=== PATIENT | male | born 2000 | race Hispanic/Latino ===

== ENCOUNTER 2018-05-04 13:02 | Emergency (ER) | payer SELFPAY ==
[2018-05-04 13:13] VITALS: BP 105/53
[2018-05-04] MEDS ORDERED: XYLOCAINE 1% MPF 5 mL INFILTRATI ONE (14:18)
[2018-05-04] MEDS ORDERED: BOOSTRIX IM ONE (14:18)
--- NOTE | 2018-05-04 14:20 | Emergency Department Report ---
ED Laceration HPI - HPI Chief Complaint: Wound/Laceration Stated Complaint: RT WRIST CUT Time Seen by Provider: 05/04/18 14:01 Occurred When: Today Location: Upper Extremity (right wrist) Severity: moderate Tetanus Status: Not up to Date Laceration Symptoms: Yes Pain, No Foreign Body Sensation, No Numbness, No Weakness Other History: This is a 17-year-old male that presents with laceration to right lateral wrist. Patient reports accident occurred one hour ago while he was at work. He was putting up ceiling tile when a metal piece scraped the side of his wrist. He cleaned the area with soap and water and wrapped with paper towel and came directly to the emergency room. Patient states there is active bleeding pain. He denies sensation of foreign body, numbness or tingling, fever, swelling. ED Review of Systems ROS: Stated complaint: RT WRIST CUT Other details as noted in HPI Constitutional: denies: chills, fever Respiratory: denies: cough, shortness of breath, wheezing Cardiovascular: denies: chest pain, palpitations Gastrointestinal: denies: abdominal pain, nausea, diarrhea Skin: lesions (laceration to right wrist). denies: rash Neurological: denies: headache, weakness, paresthesias Psychiatric: denies: anxiety, depression ED Past Medical Hx - Past Medical History Previous Medical History?: No - Surgical History Past Surgical History?: Yes Additional Surgical History: right hand surgery - Social History Smoking Status: Current Every Day Smoker Substance Use Type: Alcohol, Marijuana - Medications Home Medications: Home Medications Medication Instructions Recorded Confirmed Last Taken Type Clindamycin [Clindamycin CAP] 300 mg PO Q8H #21 cap 05/04/18 Unknown Rx Laceration Physical Exam - Exam General: Vital signs noted. No distress. Alert and acting appropriately. Wound Length (cm): 3 Laceration Location: Upper Extremity (right wrist) Full Body Front + Back: 1 - 3 cm laceration into muscle right lateral ribs, mild swelling, no vessel or tendon visualized, no surrounding cellulitis. Laceration Exam: Yes Normal Distal CMS, No Foreign Body, No Exposed Tendon, Vessel, or Nerve, No Tendon Injury ED Course Vital Signs 05/04/18 13:10 Temperature 97.6 F Pulse Rate 50 L Respiratory 18 Rate Blood Pressure 105/53 O2 Sat by Pulse 100 Oximetry - Laceration /Wound Repair Right Lateral Wrist Wound Location: upper extremity (right wrist) Wound Length (cm): 3 Wound's Depth, Shape: into muscle, linear Wound Explored: no foreign body removed Irrigated w/ Saline (ccs): 3 Betadine Prep?: Yes Anesthesia: 1% Lidocaine (1% lidocaine without epi) Volume Anesthetic (ccs): 2 Wound Debrided: minimal Wound Repaired With: sutures Suture Size/Type: 5:0 Number of Sutures: 6 Layer Closure?: No Sterile Dressing Applied?: Yes ED Medical Decision Making - Radiology Data Radiology results: report reviewed, image reviewed RIGHT WRIST, 2 VIEWS: History: Laceration lateral side. Subtle soft tissue laceration is noted lateral to the carpal bones. There is normal bone mineralization. No acute osseous injury or joint pathology is demonstrated. No radiopaque foreign body is identified. There is been previous internal fixation of the fifth metacarpal. IMPRESSION: Soft tissue laceration. - Medical Decision Making This is a 17 y.o. male presents with laceration to right wrist 1 hour ago. Patient examined by me. X-ray of left wrist obtained and Soft tissue laceration. Patient is non-toxic appearing and stable. Laceration closed with 6 sutures, review know. Patient given tetanus vaccine while in ER. Discharged home for outpatient treatment with clindamycin. Discussed ER care plan with patient. Patient agreed with plan. F/U with PCP. Critical care attestation.: If time is entered above; I have spent that time in minutes in the direct care of this critically ill patient, excluding procedure time. ED Disposition Clinical Impression: Laceration of wrist, right Qualifiers: Encounter type: initial encounter Qualified Code(s): S61.511A - Laceration without foreign body of right wrist, initial encounter Disposition: - TO HOME OR SELFCARE Is pt being admited?: No Does the pt Need Aspirin: No Condition: Stable Instructions: Suture Care (ED), Laceration (ED) Additional Instructions: Take antibiotics as prescribed for the full course. Keep wound dry and clean for 48 hours. Avoid putting to much tension on wound site. Prop arm up on pillows to decrease swelling. Follow up with Primary Care Provider in 2-3 days. Have sutures removed in 7 days by primary care provider or in ER. Return to ER if red, swollen, foul discharge, or fever. Prescriptions: Clindamycin [Clindamycin CAP] 300 mg PO Q8H #21 cap Referrals: [facility] [Outside] - 3-5 Days [facility] [Outside] - 3-5 Days [facility] [Outside] - 3-5 Days Forms: Work/School Release Form(ED) Time of Disposition: 15:27 Print Language: QATARI
--- NOTE | 2018-05-04 14:37 | XRay Report ---
RIGHT WRIST, 2 VIEWS: History: Laceration lateral side. Subtle soft tissue laceration is noted lateral to the carpal bones. There is normal bone mineralization. No acute osseous injury or joint pathology is demonstrated. No radiopaque foreign body is identified. There is been previous internal fixation of the fifth metacarpal. IMPRESSION: Soft tissue laceration.
== END 2018-05-04 15:39 | disposition home or self-care (01) ==
LOC: ED 13:02
DX: S61.511A Laceration without foreign body of right wrist, initial encounter (principal); F17.200 Nicotine dependence, unspecified, uncomplicated; F12.10 Cannabis abuse, uncomplicated; W26.8XXA Contact with other sharp object(s), not elsewhere classified, initial encounter; Y93.H3 Activity, building and construction; Y99.0 Civilian activity done for income or pay; Y92.69 Other specified industrial and construction area as the place of occurrence of the external cause
CPT/HCPCS: 90471; 90715; 99283